=== PATIENT | male | born 1955 | race Caucasian/White ===

== ENCOUNTER 2024-11-12 03:05 | Emergency (ER) | payer OTHER ==
[2024-11-12 03:11] VITALS: BP 119/65; PULSE 69; RESP 18; TEMP 98.2; BMI 29.5
[2024-11-12] MEDS ORDERED: LIDOCAINE 4% PATCH TP ONE (05:24)
[2024-11-12] MEDS ORDERED: KETOROLAC TROMETHAMINE 30 MG/1 ML VIAL ONE (05:25)
[2024-11-12] MEDS: KETOROLAC TROMETHAMINE 30 MG/1 ML VIAL IM ONE (05:29)
[2024-11-12] MEDS: LIDOCAINE 5% TOPICAL PATCH TP ONE (05:29)
[2024-11-12 06:17] LABS: URINE APPEARANCE CLEAR; URINE BILIRUBIN NEGATIVE (NEGATIVE); URINE COLOR YELLOW; URINE GLUCOSE (UA) 3+ (NEGATIVE); URINE KETONE TRACE (NEGATIVE); URINE LEUK ESTERASE NEGATIVE (NEGATIVE); URINE NITRITE NEGATIVE (NEGATIVE); URINE PROTEIN NEGATIVE (NEGATIVE); URINE UROBILINOGEN 0.2 mg/dL (0.2-1.0)
[2024-11-12 07:11] LABS: HEMATOCRIT 40.4 % (35.4-49); HEMOGLOBIN 13.3 GM/dL (11.7-16.9); MCH 26.5 pg (25.7-33.7); MCHC 32.9 g/dl (32.0-35.9); MEAN CELL VOLUME 80.8 fl (80-96); MEAN PLT VOLUME 8.5 fl (7.5-11.1); PLATELET COUNT 281 10^3/uL (134-434); WHITE BLOOD COUNT 4.3 K/mm3 (4.0-10.0)
[2024-11-12 07:27] LABS: ALBUMIN 3.7 g/dl (3.4-5.0); BILIRUBIN,TOTAL 0.3 mg/dL (0.2-1); BLOOD UREA NITROGEN 24.7 mg/dL (7-18); CALCIUM 9.2 mg/dL (8.5-10.1); CREATININE 0.9 mg/dL (0.55-1.3); POTASSIUM 4.4 mmol/L (3.5-5.1); TOT PROT 7.8 g/dl (6.4-8.2)
[2024-11-12 08:31] LABS: ANISOCYTOSIS 0; MACROCYTOSIS 0
[2024-11-12] MEDS ORDERED: LIDOCAINE PATCH REMOVAL MC ONE (18:00)
== END 2024-11-12 11:43 | disposition home or self-care (01) ==
LOC: JER 03:05
PROC: 3E0133Z Introduction of Anti-inflammatory into Subcutaneous Tissue, Percutaneous Approach (ICD-10-PCS; principal; 2024-11-12)
DX: M54.89 Other dorsalgia (principal); Z20.822 Contact with and (suspected) exposure to COVID-19
CPT/HCPCS: 0241U-QW; 36415; 74177-TC; 80053; 81003; 83605; 85025; 87086; 96372; 99284-25